=== PATIENT | female | born 1985 | race African-American/Black ===

== ENCOUNTER 2018-06-30 18:19 | Inpatient (IN) | payer OTHER ==
[2018-06-30] MEDS ORDERED: MAGNESIUM CITRATE 300 ML BOTTLE PO PRN (19:38)
[2018-06-30] MEDS ORDERED: guaiFENesin/D-METHORPHAN HB 10 ML UNIT-DOSE CUPS PO PRN (19:38)
[2018-06-30] MEDS ORDERED: ACETAMINOPHEN 325 MG TABLET (FP) PO PRN (19:38)
[2018-06-30] MEDS ORDERED: MAGNESIUM HYDROX 2400MG/30ML ORAL SUSPENSION 30 ML CUP PO PRN (19:38)
[2018-06-30] MEDS ORDERED: P-EPHED 60MG/TRIPROLIDI 2.5MG TABLET PO PRN (19:38)
[2018-06-30] MEDS ORDERED: MAG HYDROX/AL HYDROX/SIMETH 30 ML UNIT-DOSE CUP PO PRN (19:38)
[2018-06-30] MEDS ORDERED: NICOTINE POLACRILEX 2 MG GUM BUC PRN (19:38)
[2018-06-30] MEDS ORDERED: MENTHOL/PHENOL 1 EACH UD MM PRN (19:38)
[2018-06-30] MEDS ORDERED: LOPERAMIDE HCL 2 MG CAPSULE PO PRN (19:38)
--- NOTE | 2018-06-30 19:40 | PN ---
[facility] Progress Note Note: Received call from nurse to state patient was transferred from 6N to 3E. Patient w/o withdrawal symptoms. Transfer orders written.
--- NOTE | 2018-06-30 20:25 | PN ---
S Progress Note Note: Psychiatric nurse practitioner note: Call received by RN requesting patient's psychotrophic medications. Chart reviewed. Pt. transferred from . Will order Wellbutrin 300mg XL + Mirtzapine 7.5mg
[2018-06-30] MEDS: MIRTAZAPINE 15 MG TABLET (FP) PO SCH (21:42)
[2018-06-30] MEDS: MELATONIN 5 MG TABLETS PO PRN (21:42)
[2018-06-30] MEDS: THIAMINE HCL 100 MG TABLET (FP) PO SCH (21:43)
[2018-07-01] MEDS: NICOTINE 21 MG/24 HOURS TOPICAL PATCH TD SCH (10:27)
[2018-07-01] MEDS: PRENATAL VITAMINS W/ FOLIC ACID TABLET (FP) PO SCH (10:27)
[2018-07-01] MEDS: MIRTAZAPINE 15 MG TABLET (FP) PO SCH (21:06)
[2018-07-01] MEDS: THIAMINE HCL 100 MG TABLET (FP) PO SCH (21:06)
[2018-07-02] MEDS: NICOTINE 21 MG/24 HOURS TOPICAL PATCH TD SCH (09:57)
[2018-07-02] MEDS: PRENATAL VITAMINS W/ FOLIC ACID TABLET (FP) PO SCH (09:57)
[2018-07-02] MEDS: MIRTAZAPINE 15 MG TABLET (FP) PO SCH (21:36)
[2018-07-02] MEDS: THIAMINE HCL 100 MG TABLET (FP) PO SCH (21:36)
[2018-07-02] MEDS: MELATONIN 5 MG TABLETS PO PRN (21:36)
[2018-07-03] MEDS: NICOTINE 21 MG/24 HOURS TOPICAL PATCH TD SCH (10:01)
[2018-07-03] MEDS: PRENATAL VITAMINS W/ FOLIC ACID TABLET (FP) PO SCH (10:01)
--- NOTE | 2018-07-03 10:17 | HP ---
Psychiatrist Admission - Data Date of interview: 07/03/18 Admission source: [address] [place] [address] Identifying data: This is the first admission to [address] [place] [address] rehabilitation for this 33 years old mother 2 (11 and 9 yo),kids reside with the patient's grandmother.She is homeless,supported by [facility]. Medical History: Scoliosis,Low back pain. Psychiatric History: Reports started to see a psychiatrsit on and off since 28 yo to address depression,anxiety,drug use,patient was dx with Mood disorder.No psychiatric admissions,no suicidal attempts reported. She was placed on Wellbutrin 300 mg po daily and Remeron 7,5 mg po hs by psychiatrist at [facility](CPS case).She is still under his care.Patient reports still sleeping difficulties. Physical/Sexual Abuse/Trauma History: denies Vital Signs: Vital Signs - 24 hr 07/03/18 07/03/18 07/03/18 00:30 03:30 07:01 Temperature 97.8 F Pulse Rate 73 Respiratory 17 18 18 Rate Blood Pressure 121/79 Allergies/Adverse Reactions: Allergies Allergy/AdvReac Type Severity Reaction Status Date / Time No Known Allergies Allergy Verified 06/26/18 10:44 Date of last physical exam: 06/26/18 Concur with the findings of this exam: Yes - Substance Abuse/Tx History Hx Alcohol Use: No Hx Substance Use: Yes (heroin since 30 yo ,sniffing,cocaine since 21 yo) Substance Use Type: Cocaine, Heroin Hx Substance Use Treatment: Yes (this is her first inpatient rehabilitation treatment) Mental Status Exam - Mental Status Exam Alert and Oriented to: Time, Place, Person Cognitive Function: Grossly Intact Patient Appearance: Well Groomed Mood: Anxious, Irritable Affect: Mood Congruent, Labile Patient Behavior: Cooperative Speech Pattern: Clear Voice Loudness: Normal Thought Process: Goal Oriented Thought Disorder: Not Present Hallucinations: Denies Suicidal Ideation: Denies Homicidal Ideation: Denies Insight/Judgement: Fair Sleep: Difficulty falling asleep Appetite: Good Muscle strength/Tone: Normal Gait/Station: Normal Psychiatric Findings - Problem List ([place] 1, 2,3) (1) Cocaine dependence Current Visit: Yes Status: Chronic Qualifiers: (2) Nicotine dependence Current Visit: Yes Status: Chronic (3) Scoliosis Current Visit: Yes Status: Chronic Qualifiers: (4) Substance induced mood disorder Current Visit: Yes Status: Chronic (5) Opioid dependence Current Visit: Yes Status: Chronic - Initial Treatment Plan Initial Treatment Plan: Remeron7,5 mg po hs will be adjusted to 15 mg po hs, wellbutrin XL 300 mg po daily.Will monitor progress.
[2018-07-03] MEDS: THIAMINE HCL 100 MG TABLET (FP) PO SCH (21:11)
[2018-07-03] MEDS: MIRTAZAPINE 15 MG TABLET (FP) PO SCH (21:11)
[2018-07-03] MEDS: MELATONIN 5 MG TABLETS PO PRN (21:12)
[2018-07-04] MEDS: hydrOXYzine PAMOATE 25 MG CAPSULE (FP) PO PRN ×2 (10:07→21:11)
[2018-07-04] MEDS: NICOTINE 21 MG/24 HOURS TOPICAL PATCH TD SCH (10:07)
[2018-07-04] MEDS: PRENATAL VITAMINS W/ FOLIC ACID TABLET (FP) PO SCH (10:07)
[2018-07-04] MEDS: MELATONIN 5 MG TABLETS PO PRN (21:10)
[2018-07-04] MEDS: THIAMINE HCL 100 MG TABLET (FP) PO SCH (21:10)
[2018-07-04] MEDS: MIRTAZAPINE 15 MG TABLET (FP) PO SCH (21:10)
[2018-07-05] MEDS: hydrOXYzine PAMOATE 25 MG CAPSULE (FP) PO PRN ×2 (10:02→21:20)
[2018-07-05] MEDS: PRENATAL VITAMINS W/ FOLIC ACID TABLET (FP) PO SCH (10:02)
[2018-07-05] MEDS: NICOTINE 21 MG/24 HOURS TOPICAL PATCH TD SCH (10:03)
[2018-07-05] MEDS: MELATONIN 5 MG TABLETS PO PRN (21:20)
[2018-07-05] MEDS: MIRTAZAPINE 15 MG TABLET (FP) PO SCH (21:20)
[2018-07-05] MEDS: THIAMINE HCL 100 MG TABLET (FP) PO SCH (21:20)
[2018-07-06] MEDS: PRENATAL VITAMINS W/ FOLIC ACID TABLET (FP) PO SCH (10:12)
[2018-07-06] MEDS: hydrOXYzine PAMOATE 25 MG CAPSULE (FP) PO PRN ×2 (10:13→21:46)
[2018-07-06] MEDS: NICOTINE 21 MG/24 HOURS TOPICAL PATCH TD SCH (10:13)
[2018-07-06] MEDS: THIAMINE HCL 100 MG TABLET (FP) PO SCH (21:47)
[2018-07-06] MEDS: MIRTAZAPINE 15 MG TABLET (FP) PO SCH (21:47)
[2018-07-06] MEDS: MELATONIN 5 MG TABLETS PO PRN (21:47)
[2018-07-07] MEDS: NICOTINE 21 MG/24 HOURS TOPICAL PATCH TD SCH (10:08)
[2018-07-07] MEDS: hydrOXYzine PAMOATE 25 MG CAPSULE (FP) PO PRN ×2 (10:08→21:07)
[2018-07-07] MEDS: PRENATAL VITAMINS W/ FOLIC ACID TABLET (FP) PO SCH (10:08)
[2018-07-07] MEDS ORDERED: PT OWN MED DRAWER 7, Y5N ONE ×2 (21:03→22:32)
[2018-07-07] MEDS: MELATONIN 5 MG TABLETS PO PRN (21:07)
[2018-07-07] MEDS: THIAMINE HCL 100 MG TABLET (FP) PO SCH (21:07)
[2018-07-07] MEDS: MIRTAZAPINE 15 MG TABLET (FP) PO SCH (21:07)
[2018-07-08] MEDS: NICOTINE 21 MG/24 HOURS TOPICAL PATCH TD SCH (09:56)
[2018-07-08] MEDS: PRENATAL VITAMINS W/ FOLIC ACID TABLET (FP) PO SCH (09:56)
[2018-07-08] MEDS: MELATONIN 5 MG TABLETS PO PRN (21:17)
[2018-07-08] MEDS: MIRTAZAPINE 15 MG TABLET (FP) PO SCH (21:17)
[2018-07-08] MEDS: THIAMINE HCL 100 MG TABLET (FP) PO SCH (21:17)
[2018-07-08] MEDS: hydrOXYzine PAMOATE 25 MG CAPSULE (FP) PO PRN (21:17)
[2018-07-09] MEDS: NICOTINE 21 MG/24 HOURS TOPICAL PATCH TD SCH (10:04)
[2018-07-09] MEDS: PRENATAL VITAMINS W/ FOLIC ACID TABLET (FP) PO SCH (10:04)
[2018-07-09] MEDS: hydrOXYzine PAMOATE 25 MG CAPSULE (FP) PO PRN ×2 (15:36→21:17)
[2018-07-09] MEDS: THIAMINE HCL 100 MG TABLET (FP) PO SCH (21:17)
[2018-07-09] MEDS: MELATONIN 5 MG TABLETS PO PRN (21:17)
[2018-07-09] MEDS: MIRTAZAPINE 15 MG TABLET (FP) PO SCH (21:17)
[2018-07-09] MEDS: IBUPROFEN 400 MG TABLET (FP) PO PRN (21:18)
[2018-07-10] MEDS: IBUPROFEN 400 MG TABLET (FP) PO PRN ×2 (06:32→21:19)
[2018-07-10] MEDS: PRENATAL VITAMINS W/ FOLIC ACID TABLET (FP) PO SCH (09:59)
[2018-07-10] MEDS: NICOTINE 21 MG/24 HOURS TOPICAL PATCH TD SCH (09:59)
[2018-07-10] MEDS: THIAMINE HCL 100 MG TABLET (FP) PO SCH (21:19)
[2018-07-10] MEDS: hydrOXYzine PAMOATE 25 MG CAPSULE (FP) PO PRN (21:19)
[2018-07-10] MEDS: MIRTAZAPINE 15 MG TABLET (FP) PO SCH (21:19)
[2018-07-10] MEDS: MELATONIN 5 MG TABLETS PO PRN (21:20)
[2018-07-10] MEDS ORDERED: PT OWN MED DRAWER 7, Y5N ONE (22:16)
[2018-07-11] MEDS: PRENATAL VITAMINS W/ FOLIC ACID TABLET (FP) PO SCH (10:00)
[2018-07-11] MEDS: NICOTINE 21 MG/24 HOURS TOPICAL PATCH TD SCH (10:00)
[2018-07-11] MEDS ORDERED: PT OWN MED DRAWER 7, Y5N ONE ×4 (10:28→23:48)
[2018-07-11] MEDS: THIAMINE HCL 100 MG TABLET (FP) PO SCH (21:17)
[2018-07-11] MEDS: hydrOXYzine PAMOATE 25 MG CAPSULE (FP) PO PRN (21:17)
[2018-07-11] MEDS: MELATONIN 5 MG TABLETS PO PRN (21:17)
[2018-07-11] MEDS: MIRTAZAPINE 15 MG TABLET (FP) PO SCH (21:17)
[2018-07-12] MEDS: PRENATAL VITAMINS W/ FOLIC ACID TABLET (FP) PO SCH (09:50)
[2018-07-12] MEDS: NICOTINE 21 MG/24 HOURS TOPICAL PATCH TD SCH (09:51)
[2018-07-12] MEDS: hydrOXYzine PAMOATE 25 MG CAPSULE (FP) PO PRN (21:27)
[2018-07-12] MEDS: THIAMINE HCL 100 MG TABLET (FP) PO SCH (21:27)
[2018-07-12] MEDS: MIRTAZAPINE 15 MG TABLET (FP) PO SCH (21:27)
[2018-07-12] MEDS: MELATONIN 5 MG TABLETS PO PRN (21:28)
[2018-07-13] MEDS: NICOTINE 21 MG/24 HOURS TOPICAL PATCH TD SCH (09:53)
[2018-07-13] MEDS: PRENATAL VITAMINS W/ FOLIC ACID TABLET (FP) PO SCH (09:53)
[2018-07-13] MEDS ORDERED: PT OWN MED DRAWER 7, Y5N ONE (10:21)
[2018-07-13] MEDS: MIRTAZAPINE 15 MG TABLET (FP) PO SCH (21:11)
[2018-07-13] MEDS: MELATONIN 5 MG TABLETS PO PRN (21:11)
[2018-07-13] MEDS: THIAMINE HCL 100 MG TABLET (FP) PO SCH (21:11)
[2018-07-13] MEDS: hydrOXYzine PAMOATE 25 MG CAPSULE (FP) PO PRN (21:11)
[2018-07-14] MEDS: NICOTINE 21 MG/24 HOURS TOPICAL PATCH TD SCH (10:04)
[2018-07-14] MEDS: PRENATAL VITAMINS W/ FOLIC ACID TABLET (FP) PO SCH (10:04)
[2018-07-14] MEDS ORDERED: PT OWN MED DRAWER 7, Y5N ONE (15:57)
[2018-07-14] MEDS: MELATONIN 5 MG TABLETS PO PRN (21:17)
[2018-07-14] MEDS: MIRTAZAPINE 15 MG TABLET (FP) PO SCH (21:17)
[2018-07-14] MEDS: THIAMINE HCL 100 MG TABLET (FP) PO SCH (21:17)
[2018-07-14] MEDS: hydrOXYzine PAMOATE 25 MG CAPSULE (FP) PO PRN (21:17)
[2018-07-14] MEDS: IBUPROFEN 400 MG TABLET (FP) PO PRN (21:18)
[2018-07-15] MEDS: PRENATAL VITAMINS W/ FOLIC ACID TABLET (FP) PO SCH (09:48)
[2018-07-15] MEDS: NICOTINE 21 MG/24 HOURS TOPICAL PATCH TD SCH (09:49)
[2018-07-15] MEDS ORDERED: PT OWN MED DRAWER 7, Y5N ONE ×2 (21:12→22:48)
[2018-07-15] MEDS: hydrOXYzine PAMOATE 25 MG CAPSULE (FP) PO PRN (21:43)
[2018-07-15] MEDS: MELATONIN 5 MG TABLETS PO PRN (21:43)
[2018-07-15] MEDS: MIRTAZAPINE 15 MG TABLET (FP) PO SCH (21:43)
[2018-07-15] MEDS: THIAMINE HCL 100 MG TABLET (FP) PO SCH (21:44)
[2018-07-16] MEDS: NICOTINE 21 MG/24 HOURS TOPICAL PATCH TD SCH (09:38)
[2018-07-16] MEDS: PRENATAL VITAMINS W/ FOLIC ACID TABLET (FP) PO SCH (09:38)
[2018-07-16] MEDS: hydrOXYzine PAMOATE 25 MG CAPSULE (FP) PO PRN ×2 (15:23→21:17)
[2018-07-16] MEDS: THIAMINE HCL 100 MG TABLET (FP) PO SCH (21:17)
[2018-07-16] MEDS: MIRTAZAPINE 15 MG TABLET (FP) PO SCH (21:17)
[2018-07-16] MEDS: MELATONIN 5 MG TABLETS PO PRN (21:17)
[2018-07-16] MEDS ORDERED: PT OWN MED DRAWER 7, Y5N ONE (21:21)
[2018-07-17] MEDS: PRENATAL VITAMINS W/ FOLIC ACID TABLET (FP) PO SCH (09:39)
[2018-07-17] MEDS: NICOTINE 21 MG/24 HOURS TOPICAL PATCH TD SCH (09:39)
[2018-07-17] MEDS ORDERED: PT OWN MED DRAWER 7, Y5N ONE ×2 (14:39→23:45)
[2018-07-17] MEDS: hydrOXYzine PAMOATE 25 MG CAPSULE (FP) PO PRN (21:29)
[2018-07-17] MEDS: MELATONIN 5 MG TABLETS PO PRN (21:29)
[2018-07-17] MEDS: MIRTAZAPINE 15 MG TABLET (FP) PO SCH (21:29)
[2018-07-17] MEDS: THIAMINE HCL 100 MG TABLET (FP) PO SCH (21:29)
[2018-07-17] MEDS: IBUPROFEN 400 MG TABLET (FP) PO PRN (21:38)
[2018-07-18] MEDS: PRENATAL VITAMINS W/ FOLIC ACID TABLET (FP) PO SCH (09:58)
[2018-07-18] MEDS: NICOTINE 21 MG/24 HOURS TOPICAL PATCH TD SCH (09:59)
[2018-07-18] MEDS: MELATONIN 5 MG TABLETS PO PRN (21:24)
[2018-07-18] MEDS: hydrOXYzine PAMOATE 25 MG CAPSULE (FP) PO PRN (21:24)
[2018-07-18] MEDS: THIAMINE HCL 100 MG TABLET (FP) PO SCH (21:24)
[2018-07-18] MEDS: MIRTAZAPINE 15 MG TABLET (FP) PO SCH (21:24)
[2018-07-18] MEDS: IBUPROFEN 400 MG TABLET (FP) PO PRN (21:26)
[2018-07-19] MEDS: NICOTINE 21 MG/24 HOURS TOPICAL PATCH TD SCH (09:37)
[2018-07-19] MEDS: PRENATAL VITAMINS W/ FOLIC ACID TABLET (FP) PO SCH (09:37)
[2018-07-19] MEDS ORDERED: PT OWN MED DRAWER 7, Y5N ONE ×4 (09:59→22:44)
[2018-07-19] MEDS: hydrOXYzine PAMOATE 25 MG CAPSULE (FP) PO PRN (21:25)
[2018-07-19] MEDS: THIAMINE HCL 100 MG TABLET (FP) PO SCH (21:25)
[2018-07-19] MEDS: MIRTAZAPINE 15 MG TABLET (FP) PO SCH (21:25)
[2018-07-19] MEDS: MELATONIN 5 MG TABLETS PO PRN (21:25)
[2018-07-19] MEDS: IBUPROFEN 400 MG TABLET (FP) PO PRN (21:27)
[2018-07-20 06:38] VITALS: BP 106/72; PULSE 71; TEMP 98.1
--- NOTE | 2018-07-20 08:38 | PN ---
[facility] Progress Note Note: patient completed this program today.She has met her treatment goals and will continue to address her issues on outpatient basis .Patient willl continue current medications as per plan:Remeron 15 mg po hs and Wellbutrin 300 mg po daily.Scripts for 30 days provided.Patient is stable for discharge today.
[2018-07-20] MEDS: PRENATAL VITAMINS W/ FOLIC ACID TABLET (FP) PO SCH (09:17)
[2018-07-20] MEDS: NICOTINE 21 MG/24 HOURS TOPICAL PATCH TD SCH (09:17)
== END 2018-07-20 09:35 | disposition home or self-care (01) | DRG 772 ==
LOC: YASAS 18:19 → Y3E 18:20
PROVIDERS: ADMIT Psychiatry & Neurology Psychiatry; ATTEND Psychiatry & Neurology Psychiatry
PROC: HZ42ZZZ Group Counseling for Substance Abuse Treatment, Cognitive-Behavioral (ICD-10-PCS; principal; 2018-06-30)
DX: F11.20 Opioid dependence, uncomplicated (principal); F14.20 Cocaine dependence, uncomplicated; F17.210 Nicotine dependence, cigarettes, uncomplicated; F19.24 Other psychoactive substance dependence with psychoactive substance-induced mood disorder; M41.9 Scoliosis, unspecified